=== PATIENT | female | born 1950 | race Caucasian/White ===

== ENCOUNTER → 2017-08-31 | Outpatient (CLI) | payer MEDICARE, OTHER ==
[~2017-08-31] MED LIST: ACETAMINOPHEN-1 EAC1 PO; ALPRAZOLAM 0.0.25 M1 PO; BACTRIM DS TAB1 EACH PO; BONIVA; CALTRATE-600 W1 EACH PO; CARAFATE 1 GM TA1 G1; COENZYME Q10; FOSAMAX 70 MG T70 MG PO; KEFLEX500 MG PO; LEVOTHYROXIN0.112 M1 PO; MULTIPLE VITAM1 EAC3 PO; NEXIUM 40 MG CA40 M1 PO; OMEGA-3 FISH O1 EAC3 PO; OMEPRAZOLE 20 M20 M1; PRINIVIL10 MG PO; PROBIOTIC1 EAC2; PROTONIX; PROTONIX PO; PROTONIX40 M2 PO; PROZAC 20 MG20 M1 PO; SIMVASTATIN20 MG PO; STOOL SOFTENER100 M1; SYNTHROID112 MCG PO; SYNTHROID88 MCG PO; SYSTANE ULTRA1 EACH; VITAMIN D-32000 UNIT; ZPAK PO; [UNRECOGNIZED DRUG - OTHER] PO
== END ==
LOC: M.RAD 10:46
DX: Z12.31 Encounter for screening mammogram for malignant neoplasm of breast (principal)

== ENCOUNTER → 2018-08-31 | Outpatient (CLI) | payer MEDICARE, OTHER | LOC: M.RAD 13:00 | DX: Z12.31 Encounter for screening mammogram for malignant neoplasm of breast (principal) ==

== ENCOUNTER 2019-06-02 16:18 | Observation (INO) | payer MEDICARE, OTHER ==
[~2019-06-02] VITALS: Ht 165.1 cm; Wt 96.2 kg
[~2019-06-02 16:18] MED LIST changes: -SIMVASTATIN20 MG PO; +SYNTHROID112 MC1 PO; -SYNTHROID112 MCG PO; +SYSTANE ULTRA 010 ML OPHTHALMIC; -SYSTANE ULTRA1 EACH; +ZOCOR20 MG PO
[2019-06-02 16:23] VITALS: BP 166/83
[2019-06-02 17:18] LABS: ABSOLUTE LYMPHOCYTES 1.5 thou/uL (0.8-5.3); ABSOLUTE MONOCYTES 0.3 thou/uL (0.0-1.2); ABSOLUTE NEUTROPHILS 6.7 thou/uL (1.6-8.1); BASOPHILS 0.6 %; EOSINOPHILS 0.2 %; HEMATOCRIT 39.9 % (37.0-47.0); HEMOGLOBIN 13.6 gm/dL (12.0-15.0); LYMPHOCYTES 17.1 %; MCH 29.6 pg (26.0-34.0); MONOCYTES 3.4 %; MPV 8.2 fl. (7.2-11.1); NUCLEATED RBCS 0 /100WBC; PLATELET COUNT* 319 thou/uL (150-400); POLYS 78.7 %; RBC 4.59 mil/uL (4.20-5.00); RDW-CV 15.9 % (10.5-14.5); WBC 8.5 thou/uL (4.0-11.0)
[2019-06-02 17:21] LABS: CALCIUM 9.1 mg/dL (8.5-10.1); CREATININE 0.9 mg/dL (0.6-1.3); POTASSIUM 4.1 mmol/L (3.5-5.1)
[2019-06-02 17:26] LABS: ALBUMIN 3.8 g/dL (3.4-5.0); TOTAL BILIRUBIN 0.3 mg/dL (<0.1-1.0); TOTAL PROTEIN 7.8 g/dL (6.4-8.2)
[2019-06-02 17:28] LABS: PROTIME 9.9 Seconds (9.20-11.50)
[2019-06-02 19:46] VITALS: BP 131/71
[2019-06-02 20:00] VITALS: BP 138/73
[2019-06-03] VITALS: BP 147/68
[2019-06-03] MEDS ORDERED: FISH OIL 1,001000 M3 PO (03:13)
[2019-06-03] MEDS ORDERED: UNICOMPLEX M TA1 TA1 PO (03:13)
[2019-06-03] MEDS ORDERED: VITAMIN D3100 MCG PO (03:15)
[2019-06-03] MEDS ORDERED: OPTIFLEX-C400 MG PO (03:20)
[2019-06-03 04:56] VITALS: BP 123/56
[2019-06-03] MEDS ORDERED: TRANSDERM-SCOP1 EACH TRANSDERM (09:30)
[2019-06-03 12:07] VITALS: BP 117/63
[2019-06-03 12:08] VITALS: BP 117/63
[2019-06-03] MEDS ORDERED: LORATIDINE 10 M10 M1 PO (12:23)
== END 2019-06-03 14:52 | disposition home or self-care (01) ==
LOC: M.ERS 16:18 → M.TBA-ER 18:28 → M.2W 20:00
PROVIDERS: Personal Emergency Response Attendant; ADMIT Internal Medicine
DX: H81.10 Benign paroxysmal vertigo, unspecified ear (principal); I10 Essential (primary) hypertension; E78.00 Pure hypercholesterolemia, unspecified; R11.2 Nausea with vomiting, unspecified; K21.9 Gastro-esophageal reflux disease without esophagitis; E03.9 Hypothyroidism, unspecified; R31.9 Hematuria, unspecified; Z98.890 Other specified postprocedural states; Z90.49 Acquired absence of other specified parts of digestive tract

== ENCOUNTER → 2019-09-04 | Outpatient (CLI) | payer MEDICARE, OTHER ==
[~2019-09-04] MED LIST changes: +FISH OIL 1,001000 M3 PO; +LORATIDINE 10 M10 M1 PO; +OPTIFLEX-C400 MG PO; +TRANSDERM-SCOP1 EACH TRANSDERM; +UNICOMPLEX M TA1 TA1 PO; +VITAMIN D3100 MCG PO
== END ==
LOC: M.RAD 12:57
PROVIDERS: ATTEND Family Medicine
DX: Z12.31 Encounter for screening mammogram for malignant neoplasm of breast (principal)

== ENCOUNTER → 2020-09-03 | Outpatient (CLI) | payer MEDICARE, OTHER | LOC: M.RAD 11:00 | PROVIDERS: ATTEND Family Medicine | DX: Z12.31 Encounter for screening mammogram for malignant neoplasm of breast (principal); N64.89 Other specified disorders of breast; N63.20 Unspecified lump in the left breast, unspecified quadrant ==

== ENCOUNTER → 2021-03-13 | Outpatient (CLI) | payer MEDICARE, OTHER | LOC: M.RAD 12:48 | PROVIDERS: ATTEND Family Medicine | DX: R92.8 Other abnormal and inconclusive findings on diagnostic imaging of breast (principal) ==

== ENCOUNTER 2021-04-10 04:21 | Emergency (ER) | payer MEDICARE, OTHER ==
[~2021-04-10] VITALS: Ht 165.1 cm; Wt 95.3 kg
[2021-04-10] MEDS ORDERED: PROBIOTIC1 EAC7 PO (04:40)
[2021-04-10 05:00] LABS: URINE BLOOD 3+ (Negative); URINE COLOR BROWN; URINE GLUCOSE-RANDOM NEGATIVE (Negative); URINE KETONES NEGATIVE (Negative); URINE PROTEIN 2+ (Negative); URINE SPECIFIC GRAVITY 1.025 (1.005-1.030); URINE UROBILINOGEN 0.2 E.U./dl (0.2-1.0)
[2021-04-10 05:02] LABS: URINE BILIRUBIN 1+ (Negative); URINE CLARITY SL CLOUDY; URINE LEUKOCYTES-REFLEX 2+ (Negative); URINE NITRITE-REFLEX POSITIVE (Negative)
[2021-04-10 05:03] LABS: ABSOLUTE BASOPHILS 0.1 thou/uL (0.0-0.2); ABSOLUTE EOSINOPHILS 0.2 thou/uL (0.0-0.7); ABSOLUTE LYMPHOCYTES 3.2 thou/uL (0.8-5.3); ABSOLUTE MONOCYTES 1.1 thou/uL (0.0-1.2); ABSOLUTE NEUTROPHILS 9.6 thou/uL (1.6-8.1); EOSINOPHILS 1.2 %; HEMATOCRIT 39.6 % (37.0-47.0); HEMOGLOBIN 12.8 gm/dL (12.0-15.0); LYMPHOCYTES 22.6 %; MCH 28.2 pg (26.0-34.0); MCHC 32.4 g/dL (28.0-37.0); MONOCYTES 7.8 %; MPV 7.3 fl. (7.2-11.1); NUCLEATED RBCS 0 /100WBC; PLATELET COUNT* 346 thou/uL (150-400); POLYS 67.4 %; RBC 4.55 mil/uL (4.20-5.00); RDW-CV 15.7 % (10.5-14.5); WBC 14.3 thou/uL (4.0-11.0)
[2021-04-10 05:11] LABS: ICTOTEST (BILI CONFIRMATORY) Negative (Negative)
[2021-04-10] MEDS ORDERED: PYRIDIUM200 M2 PO ×2 (05:19→05:21)
[2021-04-10] MEDS ORDERED: AUGMENTIN 500-1 EACH PO (05:19)
[2021-04-10 05:20] LABS: CREATININE 0.9 mg/dL (0.6-1.3); POTASSIUM 4.1 mmol/L (3.5-5.1)
[2021-04-10] MEDS ORDERED: MACROBID 100 M100 M1 PO (05:21)
[2021-04-10 05:25] LABS: SQUAMOUS 0-3 Few /LPF (0-3)
[2021-04-10 05:26] LABS: BACTERIA-REFLEX >30 Many /HPF (None Seen); CASTS None Seen /LPF (None Seen); CRYSTALS None Seen /LPF (None Seen); MUCUS 0-3 Light strn/LPF (None Seen); URINE RBC >20 Many /HPF (0-2); URINE WBC-REFLEX >25 Many /HPF (0-5); WBC CLUMPS Moderate (None Seen)
[2021-04-10 05:28] LABS: ALBUMIN 3.7 g/dL (3.4-5.0); TOTAL BILIRUBIN 0.3 mg/dL (<0.1-1.0); TOTAL PROTEIN 7.4 g/dL (6.4-8.2)
[2021-04-10 05:40] VITALS: BP 198/78
== END 2021-04-10 05:41 | disposition home or self-care (01) ==
LOC: M.ERS 04:21
PROVIDERS: Personal Emergency Response Attendant
DX: N39.0 Urinary tract infection, site not specified (principal); I10 Essential (primary) hypertension; E78.00 Pure hypercholesterolemia, unspecified; K21.9 Gastro-esophageal reflux disease without esophagitis; E03.9 Hypothyroidism, unspecified; Z79.899 Other long term (current) drug therapy; Z90.49 Acquired absence of other specified parts of digestive tract